=== PATIENT | female | born 1990 | race Two or more races ===

== ENCOUNTER 2025-01-12 18:27 | Inpatient (IN) | payer OTHER ==
[~2025-01-12] VITALS: Ht 162.6 cm; Wt 78.0 kg
[2025-01-12 18:36] VITALS: BP 124/76
[2025-01-12 19:15] LABS: URINE APPEARANCE Cloudy; URINE BILIRRUBIN Negative (NEGATIVE); URINE BLOOD Negative; URINE COLOR Yellow; URINE GLUCOSE Negative (NEGATIVE); URINE KETONE Trace (NEGATIVE); URINE LEUKOCYTE Small; URINE NITRATE Negative; URINE PROTEIN Negative (NEGATIVE); URINE UROBILINOGEN 1.0 E.U./dl
[2025-01-12 19:16] LABS: URINE BACTERIA 5950.3 uL (0.0-1933); URINE CAST 1.46 uL (0.0-1.40); URINE EPITHELIAL CELLS 29.3 uL (0.0-38.8); URINE RBC 9.0 uL (0.0-20.8); URINE WBC 114.6 uL (0.0-23.2)
[2025-01-12 19:19] LABS: BASO % 0.3 % (0.1-1.2); EOS # 0.04 (0.04-0.54); EOS % 0.7 % (0.7-7.0); LYMPH # 1.39 (1.18-3.74); LYMPH % 22.8 % (19.3-53.1); MEAN PLATELET VOLUME 11.20 fl (9.4-12.4); MONO # 0.37 (0.24-0.82); MONO % 6.1 % (4.7-12.5); NEUT # 4.26 (1.56-6.13); NEUT % 69.9 % (34.0-71.1); RED CELL DISTRIBUTION WIDTH 12.8 % (11.6-14.4)
[2025-01-12 19:40] LABS: INR < 0.93
[2025-01-12 19:43] LABS: ALT/SGPT 15.0 U/L (12-78); AST/SGOT 16.0 U/L (15-37); BILIRUBIN TOTAL 0.31 mg/dL (0.3-1.2); BUN CREA RATIO 18.0 (7.0-25.0); CREATININE SERUM 0.72 mg/dL (0.55-1.02); GFR 92.18; GLOBULINA 3.4 G/DL (2.4-3.5); GLUCOSE FASTING 128.0 mg/dL (65-100); OSMOLALITY SERUM 281.0 MOSM/KG (275-295)
[2025-01-12] MEDS ORDERED: MISOPROSTOL 25 MCG/4 ML GEL.W.APPL VAG ONE (20:00)
[2025-01-12 20:05] VITALS: BP 117/74
[2025-01-12] MEDS ORDERED: HIERRO PO (20:26)
[2025-01-12] MEDS ORDERED: PRENATAL + DHA1 EAC1 PO (20:26)
[2025-01-12 23:06] VITALS: BP 115/74
[2025-01-13] VITALS (7 sets, daily range): BP systolic 97–127; BP diastolic 59–84
[2025-01-13] MEDS ORDERED: FAMOTIDINE/PF 20 MG/2 ML VIAL IV ONE (02:45)
[2025-01-13] MEDS ORDERED: CITRIC ACID/SODIUM CITRATE 30 ML BLIST.PACK PO ONE (02:45)
[2025-01-13] MEDS ORDERED: OXYTOCIN 500 ML IV SCH (08:00)
[2025-01-13] MEDS ORDERED: PROMETHAZINE HCL 25 MG/ML AMPUL IV NR (10:00)
[2025-01-13] MEDS ORDERED: MORPHINE SULFATE 4 MG/ML CARTRIDGE IV ONE (10:00)
[2025-01-13] MEDS ORDERED: OXYTOCIN 20 UNITS/1000ML RL PIGGYBAG IV ONE (13:32)
[2025-01-13] MEDS ORDERED: CHLORHEXIDINE GLUCONATE 120 ML BOTTLE TOP ONE (13:32)
[2025-01-13] MEDS ORDERED: ERYTHROMYCIN BASE OPHT 1GM EACH TUBE OP ONE (13:32)
[2025-01-13] MEDS ORDERED: LIDOCAINE HCL 1% 10ML VIAL ONE (13:32)
[2025-01-13] MEDS ORDERED: CHLORHEXIDINE GLUCONATE 120 ML BOTTLE TOP SCH (15:15)
[2025-01-13] MEDS ORDERED: ACETAMINOPHEN 500 MG GEL..CAP PO PRN (15:15)
[2025-01-13] MEDS ORDERED: OXYTOCIN 1,000 ML IV SCH (15:15)
[2025-01-13] MEDS ORDERED: DOCUSATE SODIUM 100MG CAP PO SCH (17:00)
[2025-01-13] MEDS ORDERED: BENZOCAINE/MENTHOL 90 ML BOTTLE TOP SCH (20:00)
[2025-01-14 08:00] VITALS: BP 110/71
[2025-01-14 12:00] VITALS: BP 119/77
[2025-01-14 16:45] VITALS: BP 120/83
[2025-01-15] VITALS: BP 116/81
[2025-01-15 08:00] VITALS: BP 123/85
[2025-01-15] MEDS ORDERED: NAPR500T14 PO (13:16)
== END 2025-01-15 15:01 | disposition home or self-care (01) | DRG 807 ==
LOC: LDR 18:27 → OB/GYN 01-13 15:36
PROVIDERS: ADMIT Obstetrics & Gynecology; ATTEND Obstetrics & Gynecology
PROC: 10E0XZZ Delivery of Products of Conception, External Approach (ICD-10-PCS; principal; 2025-01-13)
PROC: 0KQM0ZZ Repair Perineum Muscle, Open Approach (ICD-10-PCS; 2025-01-13)
PROC: 3E033VJ Introduction of Other Hormone into Peripheral Vein, Percutaneous Approach (ICD-10-PCS; 2025-01-13)
PROC: 3E0P7VZ Introduction of Hormone into Female Reproductive, Via Natural or Artificial Opening (ICD-10-PCS; 2025-01-14)
PROC: 4A1HXCZ Monitoring of Products of Conception, Cardiac Rate, External Approach (ICD-10-PCS; 2025-01-14)
DX: O70.1 Second degree perineal laceration during delivery (principal); Z37.0 Single live birth; O69.81X0 Labor and delivery complicated by cord around neck, without compression, not applicable or unspecified; Z3A.39 39 weeks gestation of pregnancy